=== PATIENT | male | born 1990 | race Caucasian/White ===

== ENCOUNTER 2025-03-03 21:22 | Emergency (ER) | payer BC ==
[~2025-03-03] VITALS: Ht 175.3 cm; Wt 80.0 kg
[2025-03-03 21:24] VITALS: O2SAT 100
[2025-03-03 21:58] LABS: BASOPHILS % 0.4 % (0.0-2.0); EOSINOPHILS % 7.3 % (0.0-5.0); HEMATOCRIT. 45.0 % (42.0-52.0); HEMOGLOBIN. 14.9 g/dL (14.0-18.0); LYMPHOCYTES % 47.1 % (20.0-50.0); MEAN PLATELET VOLUME 8.9 fl (7.4-10.4); MONOCYTES % 9.3 % (2.0-8.0); NEUTROPHILS % 35.9 % (40.0-76.0); PLATELET 200 x1000/uL (130-400); RED BLOOD CELL COUNT 5.03 mill/uL (4.7-6.1); RED CELL DISTRIBUTION WIDTH 13.3 % (11.6-14.6)
[2025-03-03 22:16] LABS: CREATININE 0.8 mg/dL (0.6-1.3)
[2025-03-03 22:17] LABS: TROPONIN I HIGH SENSITIVITY < 4 ng/L (3.0-53); UREA NITROGEN BLOOD 12 mg/dL (9-23)
[2025-03-03 22:18] LABS: ASPARTATE AMINOTRANSFERASE 19 IU/L (<34)
[2025-03-03 22:19] LABS: BILIRUBIN DIRECT 0.2 mg/dL (<=3.0); BILIRUBIN TOTAL 0.9 mg/dL (0.1-1.0); PROTEIN TOTAL 6.8 g/dL (6.0-8.3)
[2025-03-03] MEDS: ASPIRIN 325MG TABLET PO NR (23:15)
[2025-03-03] MEDS: PANTOPRAZOLE SODIUM 40 MG/VIAL IV ONE (23:20)
[2025-03-04 00:36] VITALS: TEMP 36.8; O2SAT 98
[2025-03-04 00:37] VITALS: BP 113/71; PULSE 69; RESP 16; TEMP 98.24
== END 2025-03-04 00:49 | disposition home or self-care (01) ==
LOC: ER 21:22 → EDBEDREQTM 22:56 → EDBEDREQ 22:56 → ENRESERV 03-04 00:29 → ER 03-04 00:49 → CMPBEDREQ 03-04 07:29
DX: R07.89 Other chest pain (principal)
CPT/HCPCS: 99285; 96365; 71045; 80076; 80048; 85025; 85379; 84484; 36415; 93005; J2470